=== PATIENT | female | born 2000 | race Caucasian/White ===

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

== ENCOUNTER 2019-05-31 19:26 | Inpatient (IN) | payer MEDICAID ==
[~2019-05-31 19:26] MED LIST: Bupivacaine 0.25% HCL 30 ML VIAL ONE; Bupivacaine/Epinephrine 0.25% 30 ML VIAL ONE
[2019-05-31] MEDS: Lactated Ringer's 1,000 ML IV SCH (20:35)
[2019-05-31 20:47] VITALS: BMI 32.9
[2019-05-31] MEDS ORDERED: Promethazine HCl 25 MG/ML VIAL IM PRN (21:02)
[2019-05-31] MEDS ORDERED: Lidocaine 1% (PF) 30 ML VIAL SC PRN ×2 (21:02→21:03)
[2019-05-31] MEDS ORDERED: NS / Oxytocin 40 units/1000ml 1,000 ML IV PRN (21:02)
[2019-05-31] MEDS ORDERED: hydrALAZINE 20 MG/ML VIAL SLOW IVP PRN (21:02)
[2019-05-31] MEDS ORDERED: Butorphanol Tartrate 1 MG/ML VIAL SLOW IVP PRN (21:03)
[2019-05-31] MEDS ORDERED: Diphenoxylate HCl/Atropine Tablet PO PRN ×2 (21:03)
[2019-05-31] MEDS ORDERED: Misoprostol 200 MCG TAB PR PRN (21:03)
[2019-05-31] MEDS ORDERED: Ibuprofen 800 MG TAB PO PRN (21:03)
[2019-05-31] MEDS ORDERED: Acetaminophen 500 MG TAB PO PRN (21:03)
[2019-05-31] MEDS ORDERED: Carboprost 250 MCG/ML AMP IM PRN (21:03)
[2019-05-31] MEDS ORDERED: Methylergonovine 0.2 MG/ML VIAL IM PRN (21:03)
[2019-05-31] MEDS ORDERED: NS w/ Oxytocin 10 units 500 ML IV SCH (21:15)
[2019-05-31] MEDS: Misoprostol 100 MCG TAB VAG SCH (21:35)
[2019-05-31] MEDS: NS w/ Oxytocin 10 units 500 ML IV SCH (21:38)
[2019-05-31 22:04] LABS: Hemoglobin 12.8 g/dL (12.0-16.0); Mean Corpuscular Hemoglobin 31.6 pg (25.0-35.0); Mean Corpuscular Volume 92.9 fL (78.0-98.0); Platelet Count 194 thou/uL (130-400); RBC Distribution Width 11.9 % (11.5-14.5); Red Blood Cell (RBC) Count 4.05 mill/uL (4.00-5.20); White Blood Cell (WBC) Count 13.4 thou/uL (4.8-10.8)
--- NOTE | 2019-05-31 22:11 | PDOC.FPROB ---
FMR OB H&P: HPI - History of Present Illness Chief Complaint: IOL Indentification: 18 yo @ 39.5 wks by 7.4 wk sono History of Present Illness: Pt here for IOL after US yesterday showed concern for macrsomia. EFW 4378g placing hadlock at 97%. Pt reports FM, denies ctx, LOF or vaginal bleeding. Denies any fever or chills. Denies any n/v/d/c. Denies any urinary sx's. Pt had poor care and did not have consistent f/u. Primary Care Physician: Nicholas FMR OB H&P: Current - Care : 1 Para: 0 Gestational age: 39.5 Due date: 06/01/18 Dating Criteria: 7.4 wk sono - OB Labs Blood type: O RH: positive Antibody Screen: negative HIV: negative RPR: negative HepBsAg: negative Rubella: immune Quad screen: unknown Urine drug screen: not done Gonorrhea: negative Chlamydia: negative 1 hour gtt: not done GBS: negative H&H: 14.4/41.9 Platelets: 194 - First Trimester Ultrasound First trimester: MARCIANO updated by 7.4 wk sono - Additional Ultrasound Additional: 39.4 wk sono- Hadlock 97% FMR OB H&P: History - Past Medical History PMH: Hx of depression, currently not taking any medication - OB History OB History: 1st , poor to f/u for care - [employer] History [employer] History: Abnormal lesions noted on cervix- suspect cervical warts. Advised to have f/u post - Surgical History Sx History: None - Social History Social History: Denies any smoking, drinking or illicit drug use. Pt is living with father. Pt reports feeling safe - Family History Family History: Father- HTN FMR OB H&P: Medications - Current Home Medications: Medication Instructions Recorded Confirmed Type Pyo945/Iron Fum/Folic/Docusate 1 tablet PO DAILY 05/31/19 05/31/19 History [ 19] Allergies/Adverse Reactions: Allergies Allergy/AdvReac Type Severity Reaction Status Date / Time No Known Drug Allergies Allergy Verified 05/31/19 20:31 FMR OB H&P: ROS - Review of Systems General: denies: fever/chills, weight/appetite/sleep changes ENT: denies: nasal congestion Cardiovascular: denies: chest pain Respiratory: denies: cough, shortness of breath Gastrointestinal: denies: abdominal pain, cramping, nausea, vomiting, diarrhea, constipation Genitourinary (Female): denies: incontinence, dysuria, hematuria, vaginal discharge, vaginal bleeding, contractions, vaginal pressure Musculoskeletal: denies: pain, tenderness Neurologic: denies: weakness Integumentary: denies: itching, rash Hematologic/Lymphatic: denies: prolonged or excessive bleeding Psychological: denies: depression, anxiety FMR OB H&P: Vital Signs - Maternal Vital signs: Vital Signs - First Documented Temp Pulse Resp BP 98.2 F 94 18 131/87 05/31/19 20:28 05/31/19 20:28 05/31/19 20:28 05/31/19 20:28 - Heart Tones Baseline: 130 Variability: moderate Acceleration: present Deceleration: absent Category: category 1 [place] contractions every: None noted FMR OB H&P: Physical Exam - Physical Exam General: NAD, awake, alert and oriented HEENT: normocephalic and atraumatic, grossly normal vision, grossly normal hearing Neck: supple, FROM Heart: RRR, normal S1/S2, no murmurs/rubs/gallops, pulses present, no edema, other General: CTAB, no respiratory distress, good air movement, no rales/rhonchi, no wheezing, no retractions Abdomen: soft, gravid, non-tender, bowel sound present, no masses Musculoskeletal: normal gait and station, FROM in all four extremities Neurological: sensation to pain,touch and proprioception grossly normal Skin: no rash, good tugor Psychiatric: intact recent and remote memory, normal mood and affect - Pelvic Exam SVE: 240/-2 FMR OB H&P: Results - Labs Lab results: Laboratory Results - last 24 hr 05/31/19 21:31 WBC 13.4 H RBC 4.05 Hgb 12.8 Hct 37.7 MCV 92.9 MCH 31.6 MCHC 34.0 RDW 11.9 Plt Count 194 MPV 9.0 FMR OB H&P: A/P - Problem List (1) Current Visit: Yes Status: Acute Qualifiers: Weeks of gestation: 39 weeks Qualified Code(s): Z3A.39 - 39 weeks gestation of (2) Macrosomia Current Visit: Yes Status: Acute Code(s): P08.0 - EXCEPTIONALLY LARGE BABY Disposition: 18 yo @ 39.5 wks by 7.4 wk sono comes in for IOL 2/2 macrosomia -05/29 US showed Hadlock 97% -SVE@9:15 /-2. Will place ctytotec for IOL -Cat 1 strip. FHR 125 -Pt did not follow up regulalry for routine OB visits. A1c pending at this time. Addendum - Attending - Attending Attestation Date/Time: 05/31/19 9955 I personally evaluated the patient and discussed the management with Dr. Mariscal I agree with the History, Examination, Assessment and Plan documented above with any addition or exceptions noted below - 18 yo @39.5 weeks admitted for elective induction of labor. Recent USG with concern for macrosomia showed EFW 4378 (97%). Occ ctx, Denies LOF, VB (+) FM. Afebrile VSS. SVE /-2 per nurse. Ctegory 1 FHTs. [place] occ ctx. A/P: 1) IUP@39.5 weeks - ADmit to L&D. Will place cytotec for cervical ripening. Recheck in 4 hours.
[2019-05-31 22:15] LABS: Hemoglobin A1c 5.2 % (4.0-6.0)
[2019-05-31 22:44] LABS: Syphilis Antibody Nonreactive (Nonreactive); Syphilis Antibody Index 0.04 S/CO (<1.00 Non-Reactive)
[2019-05-31 22:45] LABS: HBSAg Index 0.16 S/CO (0-0.99); Hep B Surf Ag Non-Reactive S/CO (NonReactive)
[2019-06-01] MEDS: Lactated Ringer's 1,000 ML IV SCH ×3 (01:00→22:50)
[2019-06-01] MEDS: Misoprostol 100 MCG TAB VAG SCH ×4 (01:22→22:36)
--- NOTE | 2019-06-01 01:49 | PDOC.LDPN ---
Labor & Delivery Progress Note - Subjective Subjective: comfortable - Objective Vital signs reviewed and normal: yes General: NAD Uterine fundus: non tender Dilation: 3 Effacement: 50% Station: -2 FHT: category 1, variability present [place] contractions every: 3-6 Plan: continue plan of care, labor augmentation -: Minimal change made Baby continues to look good on strip Cxn have spaced since first cytotec Will place #2 cytotec and continue labor augmentation
--- NOTE | 2019-06-01 05:27 | PDOC.LDPN ---
Labor & Delivery Progress Note - Subjective Subjective: comfortable - Objective Vital signs reviewed and normal: yes General: NAD Dilation: 3 Effacement: 50% Station: -2 FHT: category 1, variable decelerations (single small variable greater than 1 hour ago, last 30 minutes all Cat 1), variability present [place] contractions every: 6-8 per pt report, not discernable per monitor - Assessment (1) Macrosomia Code(s): P08.0 - EXCEPTIONALLY LARGE BABY Current Visit: Yes Status : Acute (2) Current Visit: Yes Status: Acute Qualifiers: Weeks of gestation: 39 weeks Qualified Code(s): Z3A.39 - 39 weeks gestation of Plan: continue plan of care, labor augmentation -: Slowly making minimal change Repeated cytotec again just prior, will give this a short time to take affect If no progression with cytotec would consider balloon vs pit as pt now is a 3 and cxns spacing
--- NOTE | 2019-06-01 08:59 | PDOC.OBLPN ---
FMR OB Labor PN: Subj - Interval History Hospital Day: 2 Chief Complaint: ctx Indentification: 18 yo at 39.5 wga by 7wk sono Interval History: increased cramping. FMR OB Labor PN: Obj - Maternal Vital signs: BP: 108/57 HR: 70 FMR OB Labor PN: Exam - Physical Exam General: NAD - Pelvic Exam SVE: [address] Smalls confirmed by Marylou RN [place] score: 5 Membranes: intact Presentation: cephalic FMR OB Labor PN: Data - Labs Lab results: Laboratory Results - last 24 hr 05/31/19 05/31/19 05/31/19 21:31 21:31 21:31 WBC RBC Hgb Hct MCV MCH MCHC RDW Plt Count MPV Hemoglobin A1c Syphilis IgG/IgM Ab Nonreactive Hep Bs Antigen Non-Reactive Blood Type O POSITIVE Antibody Screen NEGATIVE 05/31/19 05/31/19 05/31/19 21:31 21:31 23:08 WBC 13.4 H RBC 4.05 Hgb 12.8 Hct 37.7 MCV 92.9 MCH 31.6 MCHC 34.0 RDW 11.9 Plt Count 194 MPV 9.0 Hemoglobin A1c 5.2 Syphilis IgG/IgM Ab Hep Bs Antigen Blood Type O POSITIVE Antibody Screen FMR OB Labor PN: A/P - Problem List (1) Macrosomia Current Visit: Yes Status: Acute Code(s): P08.0 - EXCEPTIONALLY LARGE BABY (2) Current Visit: Yes Status: Acute Qualifiers: Weeks of gestation: 40 weeks Qualified Code(s): Z3A.40 - 40 weeks gestation of Discussion: Date/Time: 06/01/19 0858 Induction of Labor for Macrosomia - s/p cytotec x3 - Will discuss potential balloon placement w/ Dr. Lua - cat 1 strip - ctx q3-4 min Addendum - Attending - Attending Attestation Date/Time: 06/02/19 1624 I personally evaluated the patient and discussed the management with Dr. Street 06/01/19 I agree with the History, Examination, Assessment and Plan documented above with any addition or exceptions noted below. Agree with balloon placement for cervical dilation.
--- NOTE | 2019-06-01 10:32 | PDOC.BPN ---
<Shahrzad Arauz - Last Filed: 06/01/19 10:30> - Brief Progress Note Balloon successfully placed at [address] Lua present. After 6 hours w/ 80mL/80mL in each balloon, recommend starting pitocin. <Pancho Lua - Last Filed: 06/02/19 16:26> Addendum - Attending - Attending Attestation Date/Time: 06/02/19 6424 I, Pancho Lua MD, personally evaluated the patient and discussed indications for the procedure described by Dr. Arauz. I directly supervised and participated in the [place] Balloon placement and I agree with the description of procedure as documented above without any addition or exceptions.
[2019-06-01] MEDS: Ondansetron PF 4 MG/2 ML Vial IVP PRN ×2 (10:45→15:41)
--- NOTE | 2019-06-01 11:45 | PDOC.LDPN ---
Labor & Delivery Progress Note - Subjective Subjective: painful contractions - Objective Vital signs reviewed and normal: yes General: NAD Dilation: 3 Effacement: 25% Station: -2 FHT: category 1, variability present [place] contractions every: 3-4 min - Assessment (1) Macrosomia Code(s): P08.0 - EXCEPTIONALLY LARGE BABY Current Visit: Yes Status : Acute (2) Current Visit: Yes Status: Acute Qualifiers: Weeks of gestation: 39 weeks Qualified Code(s): Z3A.39 - 39 weeks gestation of Plan: continue plan of care, pitocin for augmentation -: - continue expectant mgmt - desires epidural - may eat lunch then will start pitocin - dhillon of 6
[2019-06-01] MEDS ORDERED: Fentanyl 4 mcg/Bup 0.1% Cadd 100 ML ONE ×2 (13:44→21:19)
[2019-06-01] MEDS ORDERED: Lidocaine 1% PF 5 ML VIAL ONE (14:43)
[2019-06-01] MEDS ORDERED: Lidocaine 1.5%/Epinephrine 1:200,000 5 ML AMPUL IJ ONE (14:43)
--- NOTE | 2019-06-01 16:00 | PDOC.LDPN ---
Labor & Delivery Progress Note - Subjective Subjective: comfortable - Objective Vital signs reviewed and normal: yes General: NAD Uterine fundus: non tender SVE: 06/08/2 @ [address] Smalls FHT: category 1, variability present [place] contractions every: 2-3 min AROM: clear fluid IUPC placed: yes - Assessment (1) Term Code(s): Z34.90 - ENCNTR FOR SUPRVSN OF NORMAL , UNSP, UNSP TRIMESTER Current Visit: Yes Status: Acute Comment: Pt started on pitocin, currently at 6 AROM with clear fluid, IUPC placed @ 1545 Continue to titrate pitocin to adequate MVU's Epidural in place Plan: pitocin for augmentation
[2019-06-01] MEDS ORDERED: Fentanyl 4 mcg/Bupivacaine 0.1% Cassette 100 ML EPIDURAL SCH (16:45)
[2019-06-01] MEDS ORDERED: Communication Order-Pharmacy FS SCH (16:45)
[2019-06-01] MEDS ORDERED: Lactated Ringer's 500 ML IV PRN (16:45)
[2019-06-01] MEDS ORDERED: EPHEDRINE 25 MG/5 ML SYRINGE SLOW IVP PRN (16:45)
[2019-06-01] MEDS ORDERED: Naloxone HCl 0.4 mg/ml Vial IVP PRN ×2 (16:45)
[2019-06-01] MEDS ORDERED: Ondansetron PF 4 MG/2 ML Vial IVP PRN (16:45)
[2019-06-01] MEDS ORDERED: Promethazine HCl 25 MG/ML VIAL IM PRN (16:45)
[2019-06-01] MEDS: NS w/ Oxytocin 10 units 500 ML IV SCH (17:11)
--- NOTE | 2019-06-01 19:14 | PDOC.LDPN ---
Labor & Delivery Progress Note - Subjective Subjective: comfortable - Objective Vital signs reviewed and normal: yes General: NAD Uterine fundus: non tender Dilation: 5 Effacement: 50% Station: -1 FHT: category 1, variability present [place] contractions every: 2-3 - Assessment (1) Macrosomia Code(s): P08.0 - EXCEPTIONALLY LARGE BABY Current Visit: Yes Status : Acute (2) Current Visit: Yes Status: Acute Qualifiers: Weeks of gestation: 39 weeks Qualified Code(s): Z3A.39 - 39 weeks gestation of Plan: continue plan of care, pitocin for augmentation -: Making slow change Pt comfortable Cont pit
[2019-06-01] MEDS: diphenhydrAMINE 50 MG/ML VIAL IVP PRN (19:15)
--- NOTE | 2019-06-01 20:42 | PDOC.LDPN ---
Labor & Delivery Progress Note - Subjective Subjective: comfortable - Objective Vital signs reviewed and normal: yes General: NAD Dilation: 6 Effacement: 50% Station: -1 FHT: category 1, variability present [place] contractions every: 3 - Assessment (1) Macrosomia Code(s): P08.0 - EXCEPTIONALLY LARGE BABY Current Visit: Yes Status : Acute (2) Current Visit: Yes Status: Acute Qualifiers: Weeks of gestation: 39 weeks Qualified Code(s): Z3A.39 - 39 weeks gestation of Plan: pitocin for augmentation -: [place] q3 min with adequate MVU Making continued slow cervical change Continue current plan of care with pitocin augmentation
--- NOTE | 2019-06-01 23:24 | PDOC.LDPN ---
Labor & Delivery Progress Note - Subjective Subjective: comfortable, vaginal pressure - Objective Vital signs reviewed and normal: yes General: NAD, resting Uterine fundus: non tender SVE: 6.5/80/-1 @ 2245 Dilation: 6.5 Effacement: 75% Station: -1 FHT: category 1 [place] contractions every: 2 minutes AROM: clear fluid (at 1545) - Assessment (1) Current Visit: Yes Status: Acute Qualifiers: Weeks of gestation: 39 weeks Qualified Code(s): Z3A.39 - 39 weeks gestation of (2) Macrosomia Code(s): P08.0 - EXCEPTIONALLY LARGE BABY Current Visit: Yes Status : Acute Plan: continue plan of care, labor augmentation, pitocin for augmentation -: [place] q2 min with adequate MVU SVE 6.5/80/-1. Cat 1 strip. Continue current plan of care with pitocin augmentation. Pitocin @ 8.
[2019-06-02] MEDS: diphenhydrAMINE 50 MG/ML VIAL IVP PRN (00:46)
--- NOTE | 2019-06-02 01:49 | PDOC.LDPN ---
Labor & Delivery Progress Note - Subjective Subjective: comfortable, painful contractions, vaginal pressure - Objective Vital signs reviewed and normal: yes Abnormal vital signs: Pt had one elevated pressure but was during epidural adjustment. General: other (Pt experiencing some pain. Just had epidural adjusted) SVE: 1:30 Dilation: 7.5-8 Effacement: 90% Station: -1 FHT: category 1, variability present AROM: clear fluid (Done @ 1545 on 05/31.) IUPC placed: yes - Assessment (1) Current Visit: Yes Status: Acute Qualifiers: Weeks of gestation: 40 weeks Qualified Code(s): Z3A.40 - 40 weeks gestation of (2) Macrosomia Code(s): P08.0 - EXCEPTIONALLY LARGE BABY Current Visit: Yes Status : Acute Plan: continue plan of care, pitocin for augmentation -: 18 yo @ 40 wks by 7.4 wk sono here for IOL w/w Macrosomia [place] q2 min with adequate MVU SVE@1:30 7.5-8/80-90/-1. Cat 1 strip. Continue current plan of care with pitocin augmentation. Pt had one elevated BP of 147/86 when she was getting epidural adjusted. Pt was experiencing alot of pain. Will continue to monitor. All other VSS
[2019-06-02] MEDS ORDERED: Fentanyl 4 mcg/Bup 0.1% Cadd 100 ML ONE (03:09)
[2019-06-02] MEDS: Misoprostol 100 MCG TAB VAG SCH ×2 (03:14→05:02)
--- NOTE | 2019-06-02 04:05 | PDOC.LDPN ---
Labor & Delivery Progress Note - Subjective Subjective: comfortable - Objective Vital signs reviewed and normal: yes General: NAD, resting SVE: 3:30 Dilation: 8 Effacement: 90% Station: -1 FHT: category 1, variability present, absent or minimal variables (Pt had small run of minimal variables towards end of check. Prior to that reactive. Will continue to monitor) [place] contractions every: 2 min AROM: clear fluid (1545 05/31 performed) IUPC placed: yes - Assessment (1) Current Visit: Yes Status: Acute Qualifiers: Weeks of gestation: 40 weeks Qualified Code(s): Z3A.40 - 40 weeks gestation of (2) Macrosomia Code(s): P08.0 - EXCEPTIONALLY LARGE BABY Current Visit: Yes Status : Acute Plan: continue plan of care, pitocin for augmentation -: [place] q2 min with adequate MVU SVE@1:30 7.5-8/80-90/-1. Cat 1 strip. @3:30 8/90/-1. Having slight run of minimal variability towards end of check. Just got dose of benadryl. Overall prior strip w/ moderate variability and reactive. Will continue to monitor Continue current plan of care with pitocin augmentation. VSS Having some gerd. Will give dose famotidine.
[2019-06-02] MEDS ORDERED: Loratadine 10 MG TAB PO SCH (04:30)
[2019-06-02] MEDS ORDERED: Famotidine 20 MG TAB PO SCH (04:30)
[2019-06-02] MEDS: Lactated Ringer's 1,000 ML IV SCH (05:11)
--- NOTE | 2019-06-02 06:24 | PDOC.LDPN ---
Labor & Delivery Progress Note - Subjective Subjective: vaginal pressure - Objective Vital signs reviewed and normal: yes General: resting Uterine fundus: non tender SVE: 545 Dilation: 9.5 Effacement: 100% Station: 0 FHT: category 1, absent or minimal variables (pt had acceleration with scalp stim. Had reactive strip 20 min ealier. ) AROM: clear fluid (1545 on 05/31) IUPC placed: yes - Assessment (1) Current Visit: Yes Status: Acute Qualifiers: Weeks of gestation: 40 weeks Qualified Code(s): Z3A.40 - 40 weeks gestation of (2) Macrosomia Code(s): P08.0 - EXCEPTIONALLY LARGE BABY Current Visit: Yes Status : Acute Plan: continue plan of care, pitocin for augmentation -: 18 yo @ 40 wks here for IOL 2/2 macrosomia [place] q2 min with adequate MVU SVE@1:30 7.5-8/80-90/-1. Cat 1 strip. @3:30 8/90/-1. @5:45 9.5 (anterior lip)/100/0. Minimal variables at time of check. 20 min prior had good reactive strip with accels. Had good accel w/ scalp stim on check. Continue current plan of care with pitocin augmentation. Pit @ 8. VSS
--- NOTE | 2019-06-02 07:08 | PDOC.LDPN ---
Labor & Delivery Progress Note - Subjective Subjective: comfortable - Objective Vital signs reviewed and normal: yes - Assessment (1) Macrosomia Code(s): P08.0 - EXCEPTIONALLY LARGE BABY Current Visit: Yes Status : Acute (2) Term Code(s): Z34.90 - ENCNTR FOR SUPRVSN OF NORMAL , UNSP, UNSP TRIMESTER Current Visit: Yes Status: Acute Comment: Pt started on pitocin, currently at 6 AROM with clear fluid, IUPC placed @ 1545 Continue to titrate pitocin to adequate MVU's Epidural in place -: 18 yo @ 40 wks here for IOL 2/2 macrosomia [place] q2 min with adequate MVU SVE@1:30 7.5-8/80-90/-1. Cat 1 strip. @3:30 8/90/-1. @5:45 9.5 (anterior lip)/100/0. Minimal variables at time of check. 20 min prior had good reactive strip with accels. Had good accel w/ scalp stim on check. @0700 9.5 (ant lip)/100/+1. cat 1 at this time with mod variability and accels. Previously had minimial variability but accels present throughout. will recheck in 20-30 minutes cont expectant mgmt.
--- NOTE | 2019-06-02 08:59 | PDOC.OPDEL ---
OB Operative/Delivery Note Delivery Dr/Surgeon: Sanaz Arauz (continuity)Serina Assist: Attending Dr. Lua Pre-Delivery Diagnosis: medically indicated induction (for macrosomia) Procedure/Post Delivery Dx: spontaneous vaginal delivery Weeks gestation: 40 Anesthesia: epidural - Additional Findings/Plan Placenta delivered: spontaneous Repaired Obstetrical Laceration: left labial (repaired w/ 3-0 vicryl.) Estimated blood loss: QBL 502 mL Compilations/Other Findings: Pre-op diagnosis: 1. Term intrauterine , in active labor 2. Late to Care 3. Macrosomia on ultrasound Post-op diagnosis: 1. Term intrauterine , delivered 2. Same as above Indication: 18 yo at 40.1 wga presents to L&D for mIOL for macrosomia at term Procedures: A 18 yo at 40.1 wks delivered a viable Male by Normal spontaneous vaginal delivery at 0838. delivered in [place] position over intact perineum with epidural anesthesia. No nuchal cord. Head was held down, and nares were suctioned. Infant went to warmer for stimulation. Spontaneous delivery of placenta In [place] presentation. Hemostatic Right labial and Left periurethral tears noted. Left labial tear repaired w/ 3-0 vicryl in the usual fashion. Apgars 8/9 at 1 and 5 minutes respectively. Infant went to mother for skin to skin time. Mother went to floor for routine recovery and care. Post delivery plan: routine recovery Addendum - Attending - Attending Attestation Date/Time: 06/02/19 1650 I, Pancho Lua MD, personally evaluated the patient and discussed indications for the procedure described by Dr. Arauz. I directly supervised and participated in the Spontaneous Vaginal Delivery and I agree with the description of procedure as documented above without any addition or exceptions
[2019-06-02] MEDS ORDERED: Bisacodyl 10 MG SUPP PR PRN (09:55)
[2019-06-02] MEDS ORDERED: NS / Oxytocin 40 units/1000ml 1,000 ML IV SCH (09:55)
[2019-06-02] MEDS ORDERED: Lanolin Ointment 7 GM TUBE TOP PRN (09:55)
[2019-06-02] MEDS ORDERED: Adacel (T-DAP) 0.5 ML SYRINGE IM ONE (09:55)
[2019-06-02] MEDS ORDERED: Milk Of Magnesia 30 ML UDCUP PO PRN (09:55)
[2019-06-02] MEDS ORDERED: hydrALAZINE 20 MG/ML VIAL SLOW IVP PRN (09:55)
[2019-06-02] MEDS ORDERED: Prenatal Vitamin 1 TAB PO SCH (10:30)
[2019-06-02] MEDS ORDERED: Docusate Calcium (SURFAK) 240 MG CAP PO SCH (10:30)
[2019-06-02] MEDS: Ibuprofen 800 MG TAB PO SCH ×2 (14:16→21:45)
[2019-06-02] MEDS: Acetaminophen 325 MG TAB PO PRN (14:20)
[2019-06-02] MEDS: Ferrous Sulfate 325 MG TAB PO SCH (17:43)
[2019-06-02] MEDS: Docusate Calcium (SURFAK) 240 MG CAP PO SCH (21:45)
[2019-06-03] MEDS: Ibuprofen 800 MG TAB PO SCH ×3 (05:18→22:08)
[2019-06-03 05:52] LABS: Hemoglobin 11.6 g/dL (12.0-16.0); Mean Corpuscular HGB CONC 34.4 g/dL (32.0-36.0); Mean Corpuscular Hemoglobin 31.9 pg (25.0-35.0); Mean Corpuscular Volume 92.8 fL (78.0-98.0); Mean Platelet Volume 8.4 fL (7.4-10.4); Platelet Count 190 thou/uL (130-400); RBC Distribution Width 11.9 % (11.5-14.5); Red Blood Cell (RBC) Count 3.63 mill/uL (4.00-5.20); White Blood Cell (WBC) Count 14.9 thou/uL (4.8-10.8)
[2019-06-03] MEDS: Ferrous Sulfate 325 MG TAB PO SCH ×2 (07:53→16:15)
--- NOTE | 2019-06-03 08:39 | PDOC.PP ---
Post Progress Note Post Day #: 1 Subjective: Feeling well. Minimal pain. Tolerating PO. well. Established w/ WIC. Plans to get pump. PO intake tolerated: yes Flatus: yes Ambulation: yes Vital Signs (12 hours) Temp Pulse Resp BP Pulse Ox 06/03/19 07:52 98.4 F 70 20 102/67 96 06/03/19 05:15 97.9 F 80 18 116/72 06/03/19 00:30 97.9 F 90 18 123/60 06/02/19 21:40 98.1 F 94 18 132/62 98 Weight Weight 89.811 kg - Physical Examination General: NAD Cardiovascular: no m/r/g, RRR Respiratory: clear to auscultation bilaterally, non-labored breathing Abdominal: + bowel sounds, lochia (downtrending), no distention, appropriately TTP Fundus firm & at: level of umbilicus Psychiatric: A&Ox3, normal affect Result Diagrams: 06/03/19 05:36 Additional Labs: Post Labs Blood Type O POSITIVE 05/31/19 23:08 Hep Bs Antigen Non-Reactive S/CO (NonReactive) 05/31/19 21:31 (1) Macrosomia Code(s): P08.0 - EXCEPTIONALLY LARGE BABY Status: Acute (2) Status: Resolved Qualifiers: Weeks of gestation: 40 weeks Qualified Code(s): Z3A.40 - 40 weeks gestation of - Assessment/Plan 18 yo G1 now P1 s/p , mIOL for macrosomia PPD#1 - routine care - ambulate, tolerating PO - consult Late to care - MDS pending - consider CM consult Macrosomia - infant AGA. Anticipate d/c tomorrow 06/03. Addendum - Attending - Attending Attestation Date/Time: 06/06/191813 I personally evaluated the patient and discussed the management with Dr. Aaruz on 06/03/19.. I agree with the History, Examination, Assessment and Plan documented above with any addition or exceptions noted below. Pain controlled. Lochia normal. Afeb. Fundus Firm. Continue current care.
[2019-06-03] MEDS: Docusate Calcium (SURFAK) 240 MG CAP PO SCH ×2 (09:16→22:08)
[2019-06-03] MEDS: Prenatal Vitamin 1 TAB PO SCH (09:16)
[2019-06-03] MEDS: Acetaminophen 325 MG TAB PO PRN ×2 (17:25→22:08)
[2019-06-03] MEDS ORDERED: Benzocaine-Menthol 82.5 ML CAN TOP PRN (21:01)
[2019-06-04] MEDS: Acetaminophen 325 MG TAB PO PRN (03:46)
[2019-06-04] MEDS: Ibuprofen 800 MG TAB PO SCH (06:23)
--- NOTE | 2019-06-04 06:26 | PDOC.PP ---
Post Progress Note Post Day #: 2 Subjective: Pt denies pain this AM. Tolerating PO. Ambulating. Concern from nursing overnight about patient's mood and FOB acting strangely after returning from gas station. PO intake tolerated: yes Flatus: yes Ambulation: yes Vital Signs (12 hours) Temp Pulse Resp BP Pulse Ox 06/03/19 20:20 98.4 F 76 14 127/76 99 Weight Weight 89.811 kg - Physical Examination General: NAD Cardiovascular: no m/r/g, RRR Respiratory: clear to auscultation bilaterally Abdominal: lochia (downtrending), no distention, appropriately TTP Fundus firm & at: below level of umbilicus Psychiatric: A&Ox3 Result Diagrams: 06/03/19 05:36 Additional Labs: Post Labs Blood Type O POSITIVE 05/31/19 23:08 Hep Bs Antigen Non-Reactive S/CO (NonReactive) 05/31/19 21:31 (1) Macrosomia Code(s): P08.0 - EXCEPTIONALLY LARGE BABY Status: Acute (2) Status: Resolved Qualifiers: Weeks of gestation: 40 weeks Qualified Code(s): Z3A.40 - 40 weeks gestation of - Assessment/Plan 18 yo G1 now P1 s/p , mIOL for macrosomia PPD #2 - routine care - ambulate, tolerating PO - consult, appreciate recs. Late to care - MDS pending - consult for dispo planning - UDS ordered today. Will await results prior to d/c. Macrosomia - infant AGA. Anticipate d/c if UDS neg. Addendum - Attending - Attending Attestation Date/Time: 06/06/19 1820 I personally evaluated the patient and discussed the management with Dr. Arauz on 06/04/19.. I agree with the History, Examination, Assessment and Plan documented above with any addition or exceptions noted below. Pain controlled. Lochia normal. Afeb. Fundus Firm. Stable for d/c home.
[2019-06-04] MEDS: Ferrous Sulfate 325 MG TAB PO SCH ×2 (07:18→10:48)
[2019-06-04 08:17] VITALS: BP 126/89; TEMP 98.2
[2019-06-04] MEDS: Docusate Calcium (SURFAK) 240 MG CAP PO SCH (09:01)
[2019-06-04] MEDS: Prenatal Vitamin 1 TAB PO SCH (09:01)
[2019-06-04 10:48] LABS: Amphetamine Not Detected (NotDetected); Barbiturates Screen Not Detected (NotDetected); Benzodiazepine Screen Not Detected (NotDetected); Cocaine Metabolite Screen Not Detected (NotDetected); Medtox Control Line Valid? VALID (VALID); Medtox Reader # READER 1; Methadone Not Detected (NotDetected); Methamphetamine Not Detected (NotDetected); Opiate Screen Not Detected (NotDetected); Oxycodone Screen Not Detected (NotDetected); Phencyclidine (PCP) Not Detected (NotDetected); THC/Cannabinoid Screen Not Detected (NotDetected); Tricyclic Screen Not Detected (NotDetected)
--- NOTE | 2019-06-06 05:54 | PQF ---
Lena Pierre ROBERT A MD [id number] CLINICAL DOCUMENTATION CLARIFICATION FORM: POST DISCHARGE Addendum to original discharge summary date: 06/06/19 Late entry note date: 06/06/19 DATE: 06/06/2019 ATTN: Pancho Multani Please exercise your independent, professional judgment in responding to the clarification form. Clinical indicators are provided on the bottom of this form for your review Please check appropriate box(s) to clarify if the following diagnosis has been ruled in or ruled out: Cervical Warts [ ] Ruled in diagnosis [ ] Continue to treat [ ] Resolved [ ] Ruled out diagnosis [ ] Cannot rule out diagnosis [ ] Other diagnosis [ x ] Unable to determine For continuity of documentation, please document condition throughout progress notes and discharge summary. Thank You. CLINICAL INDICATORS - SIGNS / SYMPTOMS / LABS H&P p2 05/30 Pt pt had poor care and did not have consistent f/u H&P p2 05/30 Abnormal lesions noted on cervix-suspect cervical warts. RISK FACTORS H&P p1 05/30 39.5 weeks gestation H&P p1 05/30 Macrosomia H&P p2 05/30 Poor care TREATMENTS H&P p1 05/30 Induction of labor H&P p2 05/30 follow up abnormal lesions post L&D report - (This form is maintained as a part of the permanent medical record) 2014 [employer], [employer]. All Rights Reserved [email or web address]
== END 2019-06-04 13:20 | disposition home or self-care (01) | DRG 807 ==
LOC: L&D 19:26 → 3SW 06-02 11:49
PROVIDERS: ADMIT Family Medicine; ATTEND Family Medicine
PROC: 0U7C7ZZ Dilation of Cervix, Via Natural or Artificial Opening (ICD-10-PCS; 2019-05-31)
PROC: 3E033VJ Introduction of Other Hormone into Peripheral Vein, Percutaneous Approach (ICD-10-PCS; 2019-05-31)
PROC: 3E0P7VZ Introduction of Hormone into Female Reproductive, Via Natural or Artificial Opening (ICD-10-PCS; 2019-05-31)
PROC: 10H07YZ Insertion of Other Device into Products of Conception, Via Natural or Artificial Opening (ICD-10-PCS; 2019-06-01)
PROC: 10907ZC Drainage of Amniotic Fluid, Therapeutic from Products of Conception, Via Natural or Artificial Opening (ICD-10-PCS; 2019-06-01)
PROC: 10H07YZ Insertion of Other Device into Products of Conception, Via Natural or Artificial Opening (ICD-10-PCS; 2019-06-01)
PROC: 10E0XZZ Delivery of Products of Conception, External Approach (ICD-10-PCS; principal; 2019-06-02)
PROC: 0HQ9XZZ Repair Perineum Skin, External Approach (ICD-10-PCS; 2019-06-02)
PROC: 0UQMXZZ Repair Vulva, External Approach (ICD-10-PCS; 2019-06-02)
DX: O36.63X0 Maternal care for excessive fetal growth, third trimester, not applicable or unspecified (principal); Z37.0 Single live birth; Z3A.39 39 weeks gestation of pregnancy; O70.0 First degree perineal laceration during delivery; O76 Abnormality in fetal heart rate and rhythm complicating labor and delivery; O71.82 Other specified trauma to perineum and vulva; O99.62 Diseases of the digestive system complicating childbirth; K21.9 Gastro-esophageal reflux disease without esophagitis
CPT/HCPCS: 36415; 51702; 80306; 83036; 85027; 86780; 86850; 86900; 86901; 87340; C1726; J0595; J1200; J2001; J2405; J2590; J3490; S0020

== ENCOUNTER 2019-11-05 20:54 | Emergency (ER) | payer MEDICAID, OTHER ==
[2019-11-05 21:50] LABS: Pregnancy Test - Urine (BHCG) POSITIVE (Negative); Pregu Control Background? CLEAR/WHITE (CLR/WHITE); Pregu Control Bar Appear? YES (CONTROL BAR)
[2019-11-05 23:30] LABS: Bacteria/HPF None Seen HPF (None Seen); Bilirubin Negative (Negative); Blood, Urine Negative (Negative); Clarity Clear (Clear); Glucose, Urine (Dipstick) Normal (Negative); Ketone, Urine Negative (Negative); Leukocyte 250 Leu/uL (Negative); Nitrite Negative (Negative); Protein, Urine (Dipstick) Negative (Neg-Trace); RBC/HPF 0-3 HPF (0-3); Specific Gravity, Urine 1.023 (1.002-1.036); Squamous Epithelial 0-3 HPF (0-3)
[2019-11-06 00:48] LABS: #Basophils 0.1 thou/uL (0.0-0.2); #Eosinphils 0.1 thou/uL (0.0-0.7); #Lymphocytes 1.7 thou/uL (1.20-3.40); #Monocytes 0.4 thou/uL (0.11-0.59); #Neutrophils 6.1 thou/uL (1.40-6.50); %Basophils 1.2 % (0.0-1.0); %Eosinophils 1.6 % (0.0-10.0); %Lymphocytes 19.9 % (28.0-48.0); %Monocytes 4.6 % (0.0-4.0); %Neutrophils 72.7 % (31.0-61.0); Hemoglobin 13.5 g/dL (12.0-16.0); Mean Corpuscular HGB CONC 34.4 g/dL (32.0-36.0); Mean Corpuscular Hemoglobin 30.5 pg (25.0-35.0); Mean Corpuscular Volume 88.6 fL (78.0-98.0); Mean Platelet Volume 7.8 fL (7.4-10.4); Platelet Count 236 thou/uL (130-400); RBC Distribution Width 12.5 % (11.5-14.5); Red Blood Cell (RBC) Count 4.45 mill/uL (4.00-5.20); White Blood Cell (WBC) Count 8.4 thou/uL (4.8-10.8)
--- NOTE | 2019-11-06 08:04 | ULT ---
PRELIMINARY REPORT/[facility]/AFTER HOURS PROCEDURE US OBSTETRICAL COMPLETE <14 WEEKS: CLINICAL HISTORY: Abd pain. Fall. Preg of unknown gestation. See notes on last image. Thanks. TECHNIQUE: Transabdominal imaging of the maternal pelvis and a <14 week gestation with image documentation. COMPARISON: None provided. FINDINGS: GESTATION: An intrauterine gestation is noted with a CRL of 17.8 mm corresponding to 8 weeks 2 days, demonstrating a heartbeat of 165 bpm. UTERUS: Unremarkable. No myometrial mass. Measures 10.1 x 5.6 x 8.8 cm. CERVIX: Closed. Unremarkable. OVARIES: Unremarkable. No mass. Measures 2.7 x 1.5 x 1.6 cm on the LEFT and 2.2 x 1.5 x 2.0 cm of th e RIGHT. FREE FLUID: No free fluid. IMPRESSION: Single viable intrauterine . No acute abnormality. ELECTRONICALLY SIGNED BY: Tunde Olmstead MD Nov 06, 2019 12:32:22 AM CDT This report is intended for review by the ordering physician only, in accordance of law. If you recei ve this report in error, please call [facility] at [phone]. FINAL REPORT EMERGENT AFTER HOURS TRANSVAGINAL PELVIS ULTRASOUND WITH DOPPLER: FINDINGS/IMPRESSION: I agree with the findings and impression given in the preliminary report per the [facility] valeria babb. There is a single live intrauterine with an estimated age of 8 weeks 2 days. CODE QA POS: SONIA
== END 2019-11-06 01:12 | disposition home or self-care (01) ==
LOC: ERS 20:54
DX: O99.89 Other specified diseases and conditions complicating pregnancy, childbirth and the puerperium (principal); R10.9 Unspecified abdominal pain; O99.341 Other mental disorders complicating pregnancy, first trimester; F41.9 Anxiety disorder, unspecified; F32.9 Major depressive disorder, single episode, unspecified; Z3A.08 8 weeks gestation of pregnancy; W01.0XXA Fall on same level from slipping, tripping and stumbling without subsequent striking against object, initial encounter; Y92.009 Unspecified place in unspecified non-institutional (private) residence as the place of occurrence of the external cause
CPT/HCPCS: 36415; 76856; 81003; 81015; 81025; 85025; 86900; 86901

== ENCOUNTER 2020-09-24 13:29 | Emergency (ER) | payer OTHER ==
[2020-09-24 14:38] LABS: #Eosinphils 0.2 thou/uL (0.0-0.7); #Lymphocytes 1.7 thou/uL (1.20-3.40); #Monocytes 0.5 thou/uL (0.11-0.59); #Neutrophils 6.5 thou/uL (1.40-6.50); %Basophils 0.2 % (0.0-1.0); %Eosinophils 1.9 % (0.0-10.0); %Lymphocytes 19.1 % (28.0-48.0); %Monocytes 5.2 % (0.0-4.0); %Neutrophils 73.7 % (31.0-61.0); Hemoglobin 13.2 g/dL (12.0-16.0); Mean Corpuscular HGB CONC 32.9 g/dL (32.0-36.0); Mean Corpuscular Hemoglobin 28.8 pg (25.0-35.0); Mean Corpuscular Volume 87.5 fL (78.0-98.0); Mean Platelet Volume 7.8 fL (7.4-10.4); Platelet Count 317 thou/uL (130-400); Red Blood Cell (RBC) Count 4.57 mill/uL (4.00-5.20); White Blood Cell (WBC) Count 8.8 thou/uL (4.8-10.8)
[2020-09-24 14:57] LABS: ALT (SGPT) 20 U/L (8-55); AST (SGOT) 23 U/L (5-34); Albumin 4.4 g/dL (3.5-5.0); Alkaline Phosphatase 89 U/L (40-100); Anion Gap 12 mmol/L (10-20); BUN (Urea Nitrogen) 9 mg/dL (7.0-18.7); Bilirubin, Total 0.7 mg/dL (0.2-1.2); Calc. Creatinine Clearance 0 mL/min (70-130); Calcium 9.8 mg/dL (7.8-10.44); Carbon Dioxide 23 mmol/L (22-29); Chloride 105 mmol/L (98-107); Glucose 87 mg/dL (70-105); Lipase 25 U/L (8-78); Protein, Total 7.4 g/dL (6.0-8.3); Sodium 136 mmol/L (136-145)
[2020-09-24 15:07] LABS: Bilirubin Negative (Negative); Blood, Urine Negative (Negative); Clarity Clear (Clear); Glucose, Urine (Dipstick) Normal (Negative); Ketone, Urine Negative (Negative); Leukocyte 250 Leu/uL (Negative); Nitrite Negative (Negative); Pregnancy Test - Urine (BHCG) POSITIVE (Negative); Protein, Urine (Dipstick) 20 mg/dL (Neg-Trace); RBC/HPF 0-3 HPF (0-3); Specific Gravity, Urine 1.024 (1.002-1.036); Urobilinogen Normal mg/dL (Less than 2); pH, Urine 5.5 (5.0-9.0)
[2020-09-24 15:08] LABS: Bacteria/HPF 1+ HPF (None Seen); Pregu Control Background? CLEAR/WHITE (CLR/WHITE); Pregu Control Bar Appear? YES (CONTROL BAR); Specific Gravity 1.024 (1.002-1.036)
[2020-09-24] MEDS ORDERED: Ondansetron ODT 4 MG TAB ONE (16:31)
== END 2020-09-24 17:41 | disposition home or self-care (01) ==
LOC: ERS 13:29
DX: O23.41 Unspecified infection of urinary tract in pregnancy, first trimester (principal); Z3A.01 Less than 8 weeks gestation of pregnancy
CPT/HCPCS: 36415; 76856; 80053; 81003; 81015; 81025; 83690; 84702; 85025; 93976; Q0162

== ENCOUNTER 2020-11-03 21:57 | Emergency (ER) | payer OTHER ==
[2020-11-03 22:38] LABS: Bilirubin Negative (Negative); Blood, Urine Negative (Negative); Clarity Clear (Clear); Glucose, Urine (Dipstick) Normal (Negative); Ketone, Urine Trace mg/dL (Negative); Leukocyte 500 Leu/uL (Negative); Nitrite Negative (Negative); Protein, Urine (Dipstick) 20 mg/dL (Neg-Trace); RBC/HPF 0-3 HPF (0-3); Specific Gravity, Urine 1.027 (1.002-1.036); Urobilinogen Normal mg/dL (Less than 2)
[2020-11-03 22:43] LABS: Bacteria/HPF 1+ HPF (None Seen)
[2020-11-03 23:05] LABS: #Basophils 0.1 thou/uL (0.0-0.2); #Eosinphils 0.1 thou/uL (0.0-0.7); #Monocytes 0.5 thou/uL (0.11-0.59); #Neutrophils 8.8 thou/uL (1.40-6.50); %Basophils 0.5 % (0.0-1.0); %Lymphocytes 17.1 % (28.0-48.0); %Monocytes 4.2 % (0.0-4.0); %Neutrophils 77.2 % (31.0-61.0); Hemoglobin 12.8 g/dL (12.0-16.0); Mean Corpuscular Hemoglobin 29.8 pg (25.0-35.0); Mean Corpuscular Volume 87.5 fL (78.0-98.0); Mean Platelet Volume 7.6 fL (7.4-10.4); Platelet Count 229 thou/uL (130-400); RBC Distribution Width 12.3 % (11.5-14.5); Red Blood Cell (RBC) Count 4.29 mill/uL (4.00-5.20); White Blood Cell (WBC) Count 11.4 thou/uL (4.8-10.8)
[2020-11-03 23:22] LABS: ALT (SGPT) 11 U/L (8-55); AST (SGOT) 18 U/L (5-34); Alkaline Phosphatase 85 U/L (40-100); Anion Gap 15 mmol/L (10-20); BUN (Urea Nitrogen) 7 mg/dL (7.0-18.7); Bilirubin, Total 0.4 mg/dL (0.2-1.2); Calc. Creatinine Clearance 0 mL/min (70-130); Calcium 9.2 mg/dL (7.8-10.44); Carbon Dioxide 21 mmol/L (22-29); Chloride 105 mmol/L (98-107); Globulin 2.8 g/dL (2.4-3.5); Glucose 84 mg/dL (70-105); Lipase 25 U/L (8-78); Potassium 4.2 mmol/L (3.5-5.1); Protein, Total 6.8 g/dL (6.0-8.3); Sodium 137 mmol/L (136-145)
[2020-11-04] MEDS ORDERED: Ondansetron PF 4 MG/2 ML Vial ONE (00:16)
[2020-11-04 18:39] LABS: SARS-CoV-2 PCR by NAA Not Detected (NotDetected)
== END 2020-11-04 01:36 | disposition home or self-care (01) ==
LOC: ERS 21:57
DX: O23.12 Infections of bladder in pregnancy, second trimester (principal); O21.9 Vomiting of pregnancy, unspecified; O99.012 Anemia complicating pregnancy, second trimester; Z3A.14 14 weeks gestation of pregnancy; Z20.822 Contact with and (suspected) exposure to COVID-19
CPT/HCPCS: 36415; 36416; 80053; 81003; 81015; 83690; 85025; 87086; 93005; 93010; 96374; J2405; U0003; U0005

== ENCOUNTER 2020-11-24 01:50 | Emergency (ER) | payer OTHER ==
[2020-11-24] MEDS ORDERED: diphenhydrAMINE 50 MG/ML VIAL ONE (02:39)
== END 2020-11-24 03:54 | disposition home or self-care (01) ==
LOC: ERS 01:50
DX: O99.711 Diseases of the skin and subcutaneous tissue complicating pregnancy, first trimester (principal); L25.9 Unspecified contact dermatitis, unspecified cause; Z79.899 Other long term (current) drug therapy; O99.011 Anemia complicating pregnancy, first trimester; Z3A.01 Less than 8 weeks gestation of pregnancy
CPT/HCPCS: 96372; 99282; J1200

== ENCOUNTER 2021-01-25 13:30 | Emergency (ER) | payer OTHER ==
[2021-01-25] MEDS ORDERED: Ondansetron PF 4 MG/2 ML Vial ONE (14:02)
[2021-01-25 14:25] LABS: #Lymphocytes 0.7 thou/uL (1.20-3.40); #Monocytes 0.3 thou/uL (0.11-0.59); #Neutrophils 9.2 thou/uL (1.40-6.50); %Basophils 0.1 % (0.0-1.0); %Eosinophils 0.4 % (0.0-10.0); %Lymphocytes 6.6 % (21.0-51.0); %Monocytes 3.3 % (0.0-10.0); %Neutrophils 89.7 % (42.0-75.0); Hemoglobin 12.2 g/dL (12.0-16.0); Mean Corpuscular HGB CONC 34.8 g/dL (32.0-36.0); Mean Corpuscular Hemoglobin 30.5 pg (27.0-31.0); Mean Corpuscular Volume 87.7 fL (78.0-98.0); Mean Platelet Volume 7.1 fL (7.4-10.4); Platelet Count 227 thou/uL (130-400); RBC Distribution Width 12.8 % (11.5-14.5); Red Blood Cell (RBC) Count 4.01 mill/uL (4.20-5.40); White Blood Cell (WBC) Count 10.2 thou/uL (4.8-10.8)
[2021-01-25 14:39] LABS: ALT (SGPT) 7 U/L (8-55); AST (SGOT) 13 U/L (5-34); Albumin 3.3 g/dL (3.5-5.0); Alkaline Phosphatase 114 U/L (40-110); Anion Gap 14 mmol/L (10-20); BUN (Urea Nitrogen) 8 mg/dL (7.0-18.7); Bilirubin, Total 0.6 mg/dL (0.2-1.2); Calc. Creatinine Clearance 0 mL/min (70-130); Calcium 8.8 mg/dL (7.8-10.44); Carbon Dioxide 21 mmol/L (22-29); Chloride 103 mmol/L (98-107); Globulin 3.5 g/dL (2.4-3.5); Glucose 76 mg/dL (70-105); Lipase 13 U/L (8-78); Potassium 3.7 mmol/L (3.5-5.1); Protein, Total 6.8 g/dL (6.0-8.3); Sodium 134 mmol/L (136-145)
== END 2021-01-25 15:53 | disposition home or self-care (01) ==
LOC: ERS 13:30
DX: O99.612 Diseases of the digestive system complicating pregnancy, second trimester (principal); O21.0 Mild hyperemesis gravidarum; O99.012 Anemia complicating pregnancy, second trimester; Z79.899 Other long term (current) drug therapy; Z3A.24 24 weeks gestation of pregnancy
CPT/HCPCS: 36415; 80053; 83690; 85025; 87804; 96374; J2405

== ENCOUNTER 2021-04-15 22:36 | Emergency (ER) | payer OTHER | END 2021-04-15 23:50 | disposition short-term general hospital (02) | LOC: ERS 22:36 | DX: O99.891 Other specified diseases and conditions complicating pregnancy (principal); R10.30 Lower abdominal pain, unspecified; R42 Dizziness and giddiness; O99.013 Anemia complicating pregnancy, third trimester; Z3A.30 30 weeks gestation of pregnancy | CPT/HCPCS: 93005 ==

== ENCOUNTER 2021-09-23 17:08 | Emergency (ER) | payer OTHER ==
[~2021-09-23 17:08] MED LIST changes: -Bupivacaine 0.25% HCL 30 ML VIAL ONE; -Bupivacaine/Epinephrine 0.25% 30 ML VIAL ONE; +Iopamidol 370 76% 100 ML VIAL ONE
[2021-09-23 18:25] LABS: BHCG - Serum Negative (NEGATIVE); Pregs Control Background? CLEAR/WHITE (CLR/WHITE); Pregs Control Bar Appear? YES (CONTROL BAR)
[2021-09-23 18:50] LABS: ALT (SGPT) 13 U/L (8-55); AST (SGOT) 19 U/L (5-34); Albumin 4.5 g/dL (3.5-5.0); Alkaline Phosphatase 94 U/L (40-110); Anion Gap 15 mmol/L (10-20); BUN (Urea Nitrogen) 10 mg/dL (7.0-18.7); Bilirubin, Total 0.8 mg/dL (0.2-1.2); Calc. Creatinine Clearance 0 mL/min (70-130); Calcium 9.7 mg/dL (7.8-10.44); Carbon Dioxide 22 mmol/L (22-29); Chloride 107 mmol/L (98-107); Estimated GFR 101; Globulin 2.8 g/dL (2.4-3.5); Glucose 78 mg/dL (70-105); Potassium 3.5 mmol/L (3.5-5.1); Protein, Total 7.3 g/dL (6.0-8.3); Sodium 140 mmol/L (136-145)
== END 2021-09-23 20:10 | disposition home or self-care (01) ==
LOC: ERS 17:08
DX: S21.252A Open bite of left back wall of thorax without penetration into thoracic cavity, initial encounter (principal); S50.01XA Contusion of right elbow, initial encounter; F17.210 Nicotine dependence, cigarettes, uncomplicated; D64.9 Anemia, unspecified; Y04.1XXA Assault by human bite, initial encounter
CPT/HCPCS: 70498; 80053; 84703; Q9967

== ENCOUNTER 2023-07-01 14:55 | Emergency (ER) | payer OTHER, SELFPAY ==
[2023-07-01] MEDS ORDERED: Acetaminophen 500 MG TAB ONE (18:31)
[2023-07-01 18:58] LABS: Bacteria/HPF None Seen HPF (None Seen); Bilirubin Negative (Negative); Blood, Urine Negative (Negative); CAUTI Indications for Culture Pelvic or flank pain; Clarity Clear (Clear); Glucose, Urine (Dipstick) Normal (Negative); Ketone, Urine Negative (Negative); Leukocyte 250 Leu/uL (Negative); Nitrite Negative (Negative); Protein, Urine (Dipstick) Negative (Neg-Trace); RBC/HPF 0-3 HPF (0-3); Specific Gravity, Urine 1.023 (1.002-1.036); Urobilinogen Normal mg/dL (Less than 2)
[2023-07-01 18:59] LABS: Pregnancy Test - Urine (BHCG) Negative (Negative); Pregu Control Background? CLEAR/WHITE (CLR/WHITE); Pregu Control Bar Appear? YES (CONTROL BAR); Specific Gravity 1.023 (1.002-1.036)
[2023-07-01 19:00] LABS: Urine Culture Reflex No No
== END 2023-07-01 19:33 | disposition home or self-care (01) ==
LOC: ERS 14:55
DX: M54.50 Low back pain, unspecified (principal); M54.2 Cervicalgia; F17.210 Nicotine dependence, cigarettes, uncomplicated
CPT/HCPCS: 81001; 81025; 99283

== ENCOUNTER 2024-02-23 21:40 | Emergency (ER) | payer OTHER ==
[2024-02-24 00:18] LABS: Bilirubin Negative (Negative); Blood, Urine Negative (Negative); CAUTI Indications for Culture Dysuria,urgency,freq; Clarity Clear (Clear); Glucose, Urine (Dipstick) Normal (Negative); Ketone, Urine Negative (Negative); Leukocyte 250 Leu/uL (Negative); Nitrite Negative (Negative); Protein, Urine (Dipstick) Negative (Neg-Trace); RBC/HPF 0-3 HPF (0-3); Specific Gravity, Urine 1.005 (1.002-1.036); Squamous Epithelial 0-3 HPF (0-3); Urobilinogen Normal mg/dL (Less than 2); WBC/HPF 0-3 HPF (0-3); pH, Urine 6.5 (5.0-9.0)
[2024-02-24 00:21] LABS: Bacteria/HPF Rare-Few HPF (None Seen); Urine Culture Reflex No No
== END 2024-02-23 23:13 | disposition short-term general hospital (02) ==
LOC: ERS 21:40
DX: O26.93 Pregnancy related conditions, unspecified, third trimester (principal); R10.30 Lower abdominal pain, unspecified; O36.8130 Decreased fetal movements, third trimester, not applicable or unspecified; O99.013 Anemia complicating pregnancy, third trimester; Z3A.30 30 weeks gestation of pregnancy
CPT/HCPCS: 76815; 81001